=== PATIENT | female | born 1985 | race Caucasian/White ===

== ENCOUNTER 2017-03-03 19:43 | Emergency (ER) | payer OTHER ==
--- NOTE | 2017-03-03 20:16 | PDOC ---
Rapid Medical Evaluation Time Seen by Provider: 03/03/17 20:09 Medical Evaluation: Allergies Allergy/AdvReac Type Severity Reaction Status Date / Time No Known Allergies Allergy Verified 12/28/16 20:37 03/03/17 20:09 The patient presents with a chief complaint of: Pain to the Left lower quadrant 2 days. Currently has her menses. I have performed a brief in-person evaluation of this patient. Pertinent physical exam findings: vss, Abdomen is soft, non tender non distended. Lungs clear. I have ordered the following: UA, urine culture, urine preg The patient will proceed to the ED for further evaluation. Discharge Disposition - Diagnosis Intermittent left lower quadrant abdominal pain - Referrals - Patient Instructions - Post Discharge Activity
[2017-03-03 20:17] VITALS: BP 113/75; PULSE 87; TEMP 98.4; BMI 25.2
[2017-03-03] MEDS ORDERED: ACETAMINOPHEN 325 MG TABLET (FP) PO ONE (21:04)
[2017-03-03] MEDS ORDERED: ACETAMINOPHEN 325 MG TABLET (FP) ONE (21:06)
--- NOTE | 2017-03-03 21:10 | PDOC ---
History of Present Illness - General Chief Complaint: Pain Stated Complaint: STOMACH PAIN Time Seen by Provider: 03/03/17 20:09 Past History - Past Medical History Allergies/Adverse Reactions: Allergies Allergy/AdvReac Type Severity Reaction Status Date / Time No Known Allergies Allergy Verified 03/03/17 20:17 Home Medications: Ambulatory Orders Ibuprofen 800 mg PO TID #30 tablet 03/03/17 Nitrofurantoin Monohyd/M-Cryst [Macrobid -] 100 mg PO BID #14 capsule 03/03/17 COPD: No - Suicide/Smoking/Psychosocial Hx Smoking History: Never smoked Have you smoked in the past 12 months: No Information on smoking cessation initiated: No Hx Alcohol Use: No Drug/Substance Use Hx: No Substance Use Type: None *Physical Exam - Vital Signs Last Vital Signs Temp Pulse Resp BP Pulse Ox 98.4 F 87 15 113/75 100 03/03/17 20:14 03/03/17 20:14 03/03/17 20:14 03/03/17 20:14 03/03/17 20:14 ED Treatment Course - LABORATORY CBC & Chemistry Diagram: 03/03/17 21:30 03/03/17 21:30 *DC/Admit/Observation/Transfer Diagnosis at time of Disposition: Intermittent left lower quadrant abdominal pain Urinary tract infection Qualifiers: Urinary tract infection type: acute cystitis Hematuria presence: with hematuria Qualified Code(s): N30.01 - Acute cystitis with hematuria - Discharge Dispostion Disposition: HOME Condition at time of disposition: Stable Admit: No - Referrals Referrals: Obdulia Morris MD [Primary Care Provider] - - Patient Instructions Printed Discharge Instructions: DI for Urinary Tract Infection (UTI) Additional Instructions: You have a urinary tract infection. Please take the Macrobid as prescribed to you. You may also take Motrin as needed for pain. Take 800 mg 3 times a day. Drink plenty of fluids. Your lab work did not show an infection. Your lab work showed elevated liver enzymes. Please follow-up with your doctor about your blood test this week. This week. Return to the emergency department if you have worsening pain, fevers, chills, or any changes in your symptoms. Usted tiene enrique infeccin del tracto urinario. Por favor, tome el Macrobid abad se lo recetaron. Tambin puede dell Motrin cuando sea necesario para el dolor. [place] 800 mg 3 veces al da. Beber mucho lquido. Jewell trabajo de laboratorio no mostr enrique infeccin. Jewell trabajo de laboratorio mostr niveles elevados de enzimas hepticas. Por favor, zoë un seguimiento con jewell mdico sobre jewell an lisis de yasir esta semana. Esta semana. Regrese al departamento de emergencias si tiene un empeoramiento del dolor, fiebre, escalofros o cualquier cambio en karen sntomas. Print Language: LAO - Post Discharge Activity Forms/Work/School Notes: Back to Work
[2017-03-03 21:19] LABS: HCG,QUALITATIVE URINE NEGATIVE
[2017-03-03 21:22] LABS: URINE APPEARANCE CLEAR; URINE BILIRUBIN NEGATIVE (NEGATIVE); URINE BLOOD 2+ (NEGATIVE); URINE COLOR YELLOW; URINE GLUCOSE (UA) NEGATIVE (NEGATIVE); URINE KETONE NEGATIVE (NEGATIVE); URINE LEUK ESTERASE TRACE (NEGATIVE); URINE NITRITE NEGATIVE (NEGATIVE); URINE PROTEIN NEGATIVE (NEGATIVE); URINE UROBILINOGEN NEGATIVE mg/dL (0.2-1.0)
[2017-03-03 21:35] LABS: EPI CELLS RARE /HPF (FEW); URINE MUCUS FEW
[2017-03-03 21:37] LABS: BASO % 0.8 % (0-2.0); HEMATOCRIT 36.5 % (32.4-45.2); HEMOGLOBIN 12.2 GM/dL (10.7-15.3); LYMPH % 25.1 % (8-40); MCH 28.6 pg (25.7-33.7); MCHC 33.3 g/dl (32.0-36.0); MEAN CELL VOLUME 85.7 fl (80-96); MEAN PLT VOLUME 7.9 fl (7.5-11.1); MONO % 4.8 % (3.8-10.2); NEUT % 67.3 % (42.8-82.8); PLATELET COUNT 269 K/MM3 (134-434); RBC 4.26 M/mm3 (3.60-5.2); RDW 13.6 % (11.6-15.6); WHITE BLOOD COUNT 10.3 K/mm3 (4.0-10.0)
[2017-03-03 22:10] LABS: ALBUMIN 3.6 g/dl (3.4-5.0); ANION GAP 5 (8-16); BLOOD UREA NITROGEN 16 mg/dL (7-18); CALCIUM 8.6 mg/dL (8.5-10.1); CHLORIDE 106 mmol/L (98-107); CO2 28 mmol/L (21-32); CREATININE 0.6 mg/dL (0.55-1.02); GLUCOSE,RANDOM 97 mg/dL (74-106); POTASSIUM 4.4 mmol/L (3.5-5.1); SGOT/AST 108 U/L (15-37); SGPT/ALT 96 U/L (12-78); SODIUM 139 mmol/L (136-145)
[2017-03-03 22:12] LABS: ALK PHOS 82 U/L (45-117); BILIRUBIN,TOTAL 0.4 mg/dL (0.2-1.0); TOT PROT 7.4 g/dl (6.4-8.2)
[2017-03-03] MEDS ORDERED: NITROFURANTOIN MACROCRYSTAL 50 MG CAPSULE (FP) PO SCH (22:45)
[2017-03-03] MEDS ORDERED: NITROFURANTOIN MACROCRYSTAL 50 MG CAPSULE (FP) ONE (22:46)
== END 2017-03-03 22:48 | disposition home or self-care (01) ==
LOC: JERFT 19:43
DX: N30.01 Acute cystitis with hematuria (principal)
CPT/HCPCS: 36415; 80053; 81003; 81015; 84703; 85025; 87077; 87086; 99281-25

== ENCOUNTER 2018-01-29 07:04 | Emergency (ER) | payer OTHER ==
[2018-01-29 07:27] VITALS: BP 116/78; TEMP 98.9; BMI 21.2
--- NOTE | 2018-01-29 08:20 | PDOC ---
History of Present Illness - General Chief Complaint: Cold Symptoms Stated Complaint: FEVER,COUGH Time Seen by Provider: 01/29/18 08:14 History Source: Patient Exam Limitations: No Limitations - History of Present Illness Initial Comments: CHIEF COMPLAINT: 32 y/o afebrile female c/o fever, body aches, cough and sore throat since yesterday. HISTORY OF PRESENT ILLNESS: The patient states her fever was 100.4 last night. She has been taking aleve. She states cough is dry. She did not have the flu shot this year. No sick contact. Vital signs on arrival are notable for pulse of 104. REVIEW OF SYSTEMS: GENERAL/CONSTITUTIONAL: +fever. +body aches HEAD, EYES, EARS, NOSE AND THROAT: No change in vision. No ear pain or discharge. +sore throat. CARDIOVASCULAR: No chest pain or shortness of breath. RESPIRATORY: +dry cough. No wheezing or hemoptysis. GASTROINTESTINAL: No nausea, vomiting, diarrhea, constipation. GENITOURINARY: No dysuria, frequency, or change in urination. MUSCULOSKELETAL: No joint or muscle swelling or pain. No neck or back pain. SKIN: No rash or easy bruising. NEUROLOGIC: No headache, vertigo, loss of consciousness, or loss of sensation. PHYSICAL EXAM: GENERAL: The patient is awake, alert, and fully oriented, in no acute distress. HEAD: Normal with no signs of trauma. ENT: Pupils equal, round and reactive to light, extraocular movements intact, sclera anicteric, conjunctiva clear. 2+left erythematous tonsil. 1+right erythematous tonsil. No exudate noted. +TTP of maxillary sinuses. LUNGS: Clear to auscultation bilaterally. Normal excursion. No respiratory distress or use of accessory muscles. CV: RRR, S1/S2, no MRG. Cap refill < 2 sec. ABDOMEN: Soft, non-distended, non-tender even to deep palpation, no hepatomegaly or splenomegaly, no masses. EXTREMITIES: Normal range of motion, no edema. NEUROLOGICAL: Normal speech, normal gait. CN II-XII grossly intact. SKIN: Warm, dry, normal turgor, no rashes or lesions noted. Past History - Past Medical History Allergies/Adverse Reactions: Allergies Allergy/AdvReac Type Severity Reaction Status Date / Time No Known Allergies Allergy Verified 07/21/17 02:06 Home Medications: Ambulatory Orders Ibuprofen 800 mg PO TID #30 tablet 03/03/17 COPD: No - Immunization History Immunization Up to Date: Yes - Suicide/Smoking/Psychosocial Hx Smoking History: Never smoked Have you smoked in the past 12 months: No Hx Alcohol Use: No Drug/Substance Use Hx: No Substance Use Type: None *Physical Exam - Vital Signs Last Vital Signs Temp Pulse Resp BP Pulse Ox 98.9 F 104 H 16 116/78 100 01/29/18 07:26 01/29/18 07:26 01/29/18 07:26 01/29/18 07:26 01/29/18 07:26 Moderate Sedation - Procedure Monitoring Vital Signs: Procedure Monitoring Vital Signs Temperature 98.9 F 01/29/18 07:26 Pulse Rate 104 H 01/29/18 07:26 Respiratory Rate 16 01/29/18 07:26 Blood Pressure 116/78 01/29/18 07:26 O2 Sat by Pulse Oximetry (%) 100 01/29/18 07:26 Medical Decision Making - Medical Decision Making A/P: 32 y/o female with signs and symptoms of flu vs strep vs viral uri. Plan is as follows: 1. PO tylenol 2. Rapid strep 3. Influenza Rapid strep - Negative Influenza A&B - Negative Gave patient the results. HR much improved after tylenol and no longer tachycardic. Will discharge with dx of viral URI. Suggested tylenol for fever , alternating with aleve. Instructed her to drink plenty of fluids and take OTC sudafed for nasal congestion if needed. The patient verbalizes understanding of all instructions, has no further questions and is awaiting discharge. *DC/Admit/Observation/Transfer Diagnosis at time of Disposition: Viral URI with cough - Discharge Dispostion Disposition: HOME Condition at time of disposition: Improved - Referrals Referrals: Obdulia Morris MD [Primary Care Provider] - Call tomorrow - Patient Instructions Printed Discharge Instructions: DI for Viral Upper Respiratory Infection -- Adult Additional Instructions: Discharge Instructions: -The results of your flu test and strep test were negative -You have a viral illness; your fever and other symptoms may last up to 2 weeks -Please alternate between Aleve and over the counter tylenol every 4 hours for fever and headache -Drink plenty of fluids and get lots of rest -You can take over the counter sudafed for your nasal congestion -Call Dr. Morris tomorrow to schedule follow up appointment -Return to the ER with any worsening or concerning symptoms Instrucciones de descarga: -Los resultados de jewell prueba de gripe y prueba de estreptococo fueron negativos -Tienes enrique enfermedad viral; Jewell fiebre y otros sntomas pueden durar hasta 2 semanas. -Por favor, alterne entre Aleve y sin receta tylenol cada 4 horas para la fiebre y el dolor de [place]. - Nicole muchos lquidos y descansa mucho. -Usted puede hacerse cargo del contador de sudafed para jewell congestin nasal -Llame al Dr. Alexandra bauer para programar enrique rico de seguimiento. -Regreso a la radha de emergencias con cualquier empeoramiento o sntomas relacionados Print Language: NEPALESE - Post Discharge Activity Forms/Work/School Notes: Back to Work
[2018-01-29] MEDS ORDERED: ACETAMINOPHEN 325 MG TABLET (FP) PO ONE (08:34)
[2018-01-29] MEDS ORDERED: ACETAMINOPHEN 325 MG TABLET (FP) ONE (08:37)
[2018-01-29 09:19] VITALS: PULSE 83
== END 2018-01-29 09:33 | disposition home or self-care (01) ==
LOC: JERFT 07:04
DX: J06.9 Acute upper respiratory infection, unspecified (principal); B97.89 Other viral agents as the cause of diseases classified elsewhere
CPT/HCPCS: 87070; 87804; 87880; 99281-25

== ENCOUNTER 2018-12-03 21:53 | Emergency (ER) | payer OTHER ==
[2018-12-03 22:13] VITALS: BP 112/78; PULSE 92; TEMP 98; BMI 21.8
[2018-12-03] MEDS ORDERED: hydrOXYzine PAMOATE 50 MG CAPSULE (FP) PO ONE (22:49)
[2018-12-03] MEDS ORDERED: DEXAMETHASONE SOD PHOSPHATE 10 MG/1 ML VIAL IM ONE (22:49)
--- NOTE | 2018-12-03 22:58 | PDOC ---
History of Present Illness - General Chief Complaint: Rash Stated Complaint: RASH Time Seen by Provider: 12/03/18 22:16 - History of Present Illness Initial Comments: 12/03/18 22:50 CHIEF COMPLAINT: itching HISTORY OF PRESENT ILLNESS: 33 yo F with no PMH presents to ED with rash to entire body. Patient reports she has had the rash intermittently for 4 months and has seen securities broker and allergists with negative allergy tests. She said she was diagnosed recently with scabies by an surveillance officer and given permethrin, but the itching is intolerable. No recent travel or sick contacts. PAST MEDICAL HISTORY: Denies past medical history FAMILY HISTORY: Denies SOCIAL HISTORY: =Denies tobacco, alcohol, illicit drug use. SURGICAL HISTORY: Denies ALLERGIES: No known drug allergies REVIEW OF SYSTEMS General/Constitutional: Denies fever or chills. Denies weakness, weight change. HEENT: Denies change in vision. Denies ear pain or discharge. Denies sore throat. Cardiovascular: Denies chest pain or shortness of breath. Respiratory: Denies cough, wheezing, or hemoptysis. Gastrointestinal: Denies nausea, vomiting, diarrhea or constipation. Denies rectal bleeding. Genitourinary: Denies dysuria, frequency, or change in urination. Musculoskeletal: Denies joint or muscle swelling or pain. Denies neck or back pain. Skin: Intermittent rash x 4 months Neurologic: Denies headache, vertigo, loss of consciousness, or loss of sensation. Psychiatric: Denies depression or anxiety. PHYSICAL EXAM General Appearance: Well-appearing, appropriately dressed. No apparent distress , no intoxication. HEENT: EOMI, PERRLA, normal ENT inspection, normal voice, TMs normal, pharynx normal. No conjunctival pallor. No photophobia, scleral icterus. Neck: Supple. Trachea midline. No tenderness, rigidity, carotid bruit, stridor , lymphadenopathy, or thyromegaly. Respiratory/Chest: Lungs CTAB. No shortness of breath, chest tenderness, respiratory distress, accessory muscle use. No crackles, rales, rhonchi, stridor , wheezing, dullness Cardiovascular: RRR. S1, S2. No JVD, murmur, bradycardia, tachycardia. Vascular Pulses: Dorsalis-Pedis (R): 2+, Dorsalis-Pedis (L): 2+ Gastrointestinal/Abdominal: Normal bowel sounds. Abdomen soft, non-distended. No tenderness or rebound tenderness. No organomegaly, pulsatile mass, guarding , hernia, hepatomegaly, splenomegaly. Lymphatic: No adenopathy, tenderness. Musculoskeletal/Extremities: Normal inspection. FROM of all extremities, normal capillary refill. Pelvis Stable. No CVA tenderness. No tenderness to extremities, pedal edema, swelling, erythema or deformity. Integumentary: Generalized, papular, pruritic rash to entire body including webspaces of fingers. Appropriate color, dry, warm. No cyanosis, erythema, jaundice or rash Neurologic: almond blancher operator II-XII intact. Fully oriented, alert. Appropriate mood/affect. Motor strength 5/5. No appreciable EOM palsy, facial droop or sensory deficit. Past History - Past Medical History Allergies/Adverse Reactions: Allergies Allergy/AdvReac Type Severity Reaction Status Date / Time No Known Allergies Allergy Verified 12/03/18 22:13 Home Medications: Ambulatory Orders Ibuprofen 800 mg PO TID #30 tablet 03/03/17 COPD: No - Immunization History Immunization Up to Date: Yes - Psycho Social/Smoking Cessation Hx Smoking History: Never smoked Have you smoked in the past 12 months: No Hx Alcohol Use: No Drug/Substance Use Hx: No Substance Use Type: None *Physical Exam - Vital Signs Last Vital Signs Temp Pulse Resp BP Pulse Ox 98 F 92 H 18 112/78 99 12/03/18 22:10 12/03/18 22:10 12/03/18 22:10 12/03/18 22:10 12/03/18 22:10 Medical Decision Making - Medical Decision Making 12/04/18 00:24 33 yo F with no PMH presents to ED with rash to entire body. -decadron -hydroxzyine Advised patient to f/u with dermatology/surveillance officer for continued management of scabies and to request brush sander treatment to apartment. Discharge - Discharge Information Problems reviewed: Yes Clinical Impression/Diagnosis: Scabies Condition: Stable Disposition: HOME - Admission No - Follow up/Referral Referrals: Obdulia Morris MD [Primary Care Provider] - - Patient Discharge Instructions Patient Printed Discharge Instructions: DI for Scabies - Post Discharge Activity
[2018-12-03] MEDS ORDERED: DEXAMETHASONE SOD PHOSPHATE 10 MG/1 ML VIAL ONE (23:12)
[2018-12-03] MEDS ORDERED: hydrOXYzine HCL 50 MG/ML VIAL IM ONE (23:14)
== END 2018-12-03 23:43 | disposition home or self-care (01) ==
LOC: JERFT 21:53
DX: B86 Scabies (principal)
CPT/HCPCS: 99281-25

== ENCOUNTER 2020-12-21 15:24 | Emergency (ER) | payer OTHER ==
[2020-12-21 15:30] VITALS: BP 121/84; PULSE 92; TEMP 98; BMI 27.8
== END 2020-12-21 17:05 | disposition home or self-care (01) ==
LOC: JER 15:24
DX: N64.4 Mastodynia (principal)
CPT/HCPCS: 99283-25; C9803; U0003; U0005

== ENCOUNTER → 2024-07-30 | Day surgery (SDC) | payer OTHER | END | disposition home or self-care (01) | LOC: EDSTATUS 11:00 → JRADIR 11:02 | PROVIDERS: ATTEND Obstetrics & Gynecology | PROC: BU1 Imaging, Female Reproductive System, Fluoroscopy (ICD-10-PCS; principal; 2024-07-30) | DX: N84.0 Polyp of corpus uteri (principal) | CPT/HCPCS: 58340; 76831; 84703 ==